=== PATIENT | female | born 1960 | race Caucasian/White ===

== ENCOUNTER 2020-06-20 20:28 | Emergency (ER) | payer MEDICARE ==
[~2020-06-20] VITALS: Ht 157.5 cm; Wt 83.9 kg
[2020-06-20] MEDS ORDERED: HYDROCODONE/APAP 5MG-325MG TAB ONE (21:49)
[2020-06-20] MEDS ORDERED: HYDROCODONE/APAP 5MG-325MG TAB PO ONE (22:00)
[2020-06-20] MEDS ORDERED: ULTRAM50 MG PO (23:06)
== END 2020-06-20 23:30 | disposition home or self-care (01) ==
LOC: ER 20:35
DX: S92.021A Displaced fracture of anterior process of right calcaneus, initial encounter for closed fracture (principal); X50.1XXA Overexertion from prolonged static or awkward postures, initial encounter; Y93.01 Activity, walking, marching and hiking; Y92.89 Other specified places as the place of occurrence of the external cause
CPT/HCPCS: 99283

== ENCOUNTER 2021-06-16 16:13 | Emergency (ER) | payer MEDICARE, OTHER ==
[~2021-06-16] VITALS: Ht 157.5 cm; Wt 83.9 kg
[~2021-06-16 16:13] MED LIST: ULTRAM50 MG PO
[2021-06-16] MEDS ORDERED: HYDROCODONE/APAP 5MG-325MG TAB PO ONE (16:45)
[2021-06-16] MEDS ORDERED: HYDROXYZINE HCL 25 MG TAB PO PRN (17:15)
== END 2021-06-16 18:00 | disposition home or self-care (01) ==
LOC: ER 16:26
DX: M54.50 Low back pain, unspecified (principal); G47.411 Narcolepsy with cataplexy; I10 Essential (primary) hypertension
CPT/HCPCS: 72100; 93005; 99284; J3410

== ENCOUNTER 2022-01-01 15:04 | Observation (INO) | payer MEDICARE ==
[~2022-01-01] VITALS: Ht 160 cm; Wt 80.7 kg
[2022-01-01] MEDS ORDERED: SODIUM CHLORIDE 0.9% 1000ML 1,000 ML IV STA (15:23)
[2022-01-01] MEDS ORDERED: KETOROLAC TROMETHAMINE 30 MG/ML VIAL IV STA (15:23)
[2022-01-01 15:51] LABS: BASOPHILS # (AUTO) 0.1 (0.0-0.1); BASOPHILS % 0.7 % (0.0-1.0); EOSINOPHILS # (AUTO) 0.3 (0.0-0.4); EOSINOPHILS % 4.3 % (0.0-6.0); HEMATOCRIT 44.3 % (34.2-44.1); HEMOGLOBIN 14.5 g/dL (12.0-16.0); LYMPHOCYTES # (AUTO) 3.1 (1.0-3.2); LYMPHOCYTES % 43.1 % (18.0-39.1); MEAN CORPUSCULAR HEMOGLOBIN 27.9 pg (28-32); MEAN CORPUSCULAR HGB CONC 32.7 g/dL (31-35); MEAN CORPUSCULAR VOLUME 85.2 fL (81-99); MONOCYTES # (AUTO) 0.5 (0.2-0.8); MONOCYTES % 7.4 % (4.4-11.3); NEUTROPHILS # (AUTO) 3.2 (2.1-6.9); NEUTROPHILS % 44.4 % (38.7-80.0); PLATELET COUNT 255 x10e3/uL (140-360); RED CELL DISTRIBUTION WIDTH 14.2 % (11.7-14.4)
[2022-01-01 16:07] LABS: ALANINE AMINOTRANSFERASE 17 IU/L (0-55); ALBUMIN 3.7 g/dL (3.5-5.0); ALBUMIN/GLOBULIN RATIO 1.1 (0.8-2.0); ALKALINE PHOSPHATASE 84 IU/L (40-150); ANION GAP 17.6 mmol/L (8-16); BLOOD UREA NITROGEN 8 mg/dL (7-26); BUN/CREATININE RATIO 10 (6-25); CALCIUM 9.7 mg/dL (8.4-10.2); CARBON DIOXIDE 19 mmol/L (22-29); CHLORIDE 108 mmol/L (98-107); CREATINE KINASE 99 IU/L (29-168); CREATININE, SERUM 0.79 mg/dL (0.57-1.11); GLUCOSE 159 mg/dL (74-118); LIPASE 19 U/L (8-78); POTASSIUM 3.6 mmol/L (3.5-5.1); SODIUM 141 mmol/L (136-145)
[2022-01-01 16:16] LABS: CLARITY,URINE CLEAR (CLEAR); COLOR,URINE YELLOW (YELLOW); KETONES,URINE 1+ (NEGATIVE); LEUKOCYTE ESTERASE ,URINE NEGATIVE (NEGATIVE); NITRITE,URINE NEGATIVE (NEGATIVE); PROTEIN,URINE DIPSTICK NEGATIVE (NEGATIVE); URINE UROBILINOGEN 0.2 mg/dL (0.2 - 1)
[2022-01-01 16:20] LABS: BACTERIA,URINE FEW /HPF; EPITHELIAL CELLS,URINE FEW /LPF; RBC,URINE 0-5 /HPF (0-5); WBC,URINE (MAN) 0-5 /HPF (0-5)
[2022-01-01] MEDS: Morphine 4mg INJECTION 4 MG/ML INJ IV PRN (17:40)
[2022-01-01] MEDS: ONDANSETRON HCL INJ 2MG/ML 2ML 2 MG/ML VIAL IV PRN (17:40)
[2022-01-01] MEDS: SODIUM CHLORIDE 0.9% 1000ML 1,000 ML IV SCH ×2 (17:40→22:00)
[2022-01-01 18:29] LABS: CREATINE KINASE 84 IU/L (29-168)
[2022-01-01 21:55] VITALS: BP 113/97
[2022-01-01 22:00] VITALS: BP 113/97
[2022-01-01] MEDS ORDERED: WAKIX17.8 MG PO (22:38)
[2022-01-01] MEDS ORDERED: HYDROCODON-ACE1 EAC9 (22:38)
[2022-01-01] MEDS ORDERED: SUMATRIPTAN SUC25 MG PO (22:38)
[2022-01-01] MEDS ORDERED: HYDROXYZINE HCL25 MG PO (22:38)
[2022-01-01] MEDS ORDERED: ADAPALENE45 G2 (22:38)
[2022-01-01] MEDS ORDERED: FOLIC ACID0.4 MG PO (22:38)
[2022-01-01] MEDS ORDERED: UBRELVY100 MG PO (22:38)
[2022-01-01] MEDS ORDERED: [UNRECOGNIZED DRUG - OTHER] INJ (22:38)
[2022-01-01] MEDS ORDERED: NUVIGIL150 MG PO (22:38)
[2022-01-02] VITALS (8 sets, daily range): BP systolic 111–140; BP diastolic 41–71
[2022-01-02 02:18] LABS: CREATINE KINASE 83 IU/L (29-168)
[2022-01-02 05:33] LABS: BASOPHILS % 0.5 % (0.0-1.0); EOSINOPHILS # (AUTO) 0.2 (0.0-0.4); EOSINOPHILS % 3.7 % (0.0-6.0); HEMATOCRIT 38.1 % (34.2-44.1); LYMPHOCYTES # (AUTO) 2.5 (1.0-3.2); LYMPHOCYTES % 37.8 % (18.0-39.1); MEAN CORPUSCULAR HEMOGLOBIN 27.9 pg (28-32); MEAN CORPUSCULAR HGB CONC 31.5 g/dL (31-35); MEAN CORPUSCULAR VOLUME 88.6 fL (81-99); MONOCYTES # (AUTO) 0.5 (0.2-0.8); MONOCYTES % 7.2 % (4.4-11.3); NEUTROPHILS # (AUTO) 3.3 (2.1-6.9); NEUTROPHILS % 50.8 % (38.7-80.0); PLATELET COUNT 184 x10e3/uL (140-360); RED CELL DISTRIBUTION WIDTH 14.6 % (11.7-14.4)
[2022-01-02 05:51] LABS: ANION GAP 11.2 mmol/L (8-16); CALCIUM 8.2 mg/dL (8.4-10.2); CREATININE, SERUM 0.68 mg/dL (0.57-1.11); PHOSPHORUS 3.3 MG/DL (2.3-4.7); POTASSIUM 4.2 mmol/L (3.5-5.1)
[2022-01-02] MEDS: SODIUM CHLORIDE 0.9% 1000ML 1,000 ML IV SCH ×2 (06:40→16:44)
[2022-01-02] MEDS: ONDANSETRON HCL INJ 2MG/ML 2ML 2 MG/ML VIAL IV PRN (07:54)
[2022-01-02] MEDS: Morphine 4mg INJECTION 4 MG/ML INJ IV PRN (07:59)
[2022-01-02] MEDS ORDERED: MAGNESIUM HYDROXIDE 30 ML UDC PO PRN (09:30)
[2022-01-02] MEDS ORDERED: ARMODAFINIL 150 MG TAB PO SCH (09:30)
[2022-01-02] MEDS ORDERED: BISACODYL 10 MG SUPP PR PRN (09:30)
[2022-01-02] MEDS ORDERED: NUVIGIL200 MG PO (09:53)
[2022-01-02] MEDS ORDERED: BISACODYL 10 MG SUPP PR ONE (10:00)
[2022-01-02] MEDS ORDERED: MAGNESIUM HYDROXIDE 30 ML UDC PO ONE (10:00)
[2022-01-02] MEDS: HYDROXYZINE HCL 25 MG TAB PO SCH ×3 (10:25→21:05)
[2022-01-02] MEDS ORDERED: CITRATE OF MAGNESIA 300ML BOTTLE PO ONE (11:00)
[2022-01-02 11:14] LABS: CREATINE KINASE MB 2.3 ng/mL (0-5.0)
[2022-01-02] MEDS: SENNA-S TABLET PO SCH (16:43)
[2022-01-02] MEDS ORDERED: BISACODYL 5 MG TAB EC PO ONE ×2 (23:16→23:30)
[2022-01-03] MEDS ORDERED: BISACODYL 5 MG TAB EC PO SCH
[2022-01-03 00:30] VITALS: BP 127/71
[2022-01-03] MEDS: ONDANSETRON HCL INJ 2MG/ML 2ML 2 MG/ML VIAL IV PRN (01:58)
[2022-01-03] MEDS: Morphine 4mg INJECTION 4 MG/ML INJ IV PRN (01:59)
[2022-01-03] MEDS ORDERED: CITRATE OF MAGNESIA 300ML BOTTLE PO ONE ×2 (05:00→07:00)
[2022-01-03] MEDS: SODIUM CHLORIDE 0.9% 1000ML 1,000 ML IV SCH (05:30)
[2022-01-03 05:33] LABS: BASOPHILS # (AUTO) 0.1 (0.0-0.1); BASOPHILS % 0.8 % (0.0-1.0); EOSINOPHILS # (AUTO) 0.5 (0.0-0.4); EOSINOPHILS % 6.3 % (0.0-6.0); HEMATOCRIT 41.6 % (34.2-44.1); HEMOGLOBIN 13.2 g/dL (12.0-16.0); LYMPHOCYTES # (AUTO) 3.2 (1.0-3.2); LYMPHOCYTES % 45.4 % (18.0-39.1); MEAN CORPUSCULAR HEMOGLOBIN 27.8 pg (28-32); MEAN CORPUSCULAR HGB CONC 31.7 g/dL (31-35); MEAN CORPUSCULAR VOLUME 87.8 fL (81-99); MONOCYTES # (AUTO) 0.6 (0.2-0.8); NEUTROPHILS # (AUTO) 2.8 (2.1-6.9); NEUTROPHILS % 39.2 % (38.7-80.0); PLATELET COUNT 213 x10e3/uL (140-360); RED BLOOD COUNT 4.74 x10e6/uL (3.6-5.1); RED CELL DISTRIBUTION WIDTH 14.5 % (11.7-14.4)
[2022-01-03 05:53] LABS: ANION GAP 15.7 mmol/L (8-16); BLOOD UREA NITROGEN < 5 mg/dL (7-26); CALCIUM 9.1 mg/dL (8.4-10.2); CARBON DIOXIDE 27 mmol/L (22-29); CHLORIDE 108 mmol/L (98-107); GLUCOSE 77 mg/dL (74-118); POTASSIUM 4.7 mmol/L (3.5-5.1); SODIUM 146 mmol/L (136-145)
[2022-01-03 06:06] LABS: BUN/CREATININE RATIO 7 (6-25)
[2022-01-03 08:44] VITALS: BP 165/78
[2022-01-03] MEDS: SENNA-S TABLET PO SCH ×2 (09:00→17:00)
[2022-01-03] MEDS: HYDROXYZINE HCL 25 MG TAB PO SCH ×2 (09:00→15:00)
[2022-01-03 10:00] VITALS: BP 165/78
[2022-01-03 11:52] VITALS: BP 127/71
[2022-01-03] MEDS ORDERED: LIDOCAINE HCL 2% LOCAL INJ 5 ML SDV VIAL INJ ONE (12:55)
[2022-01-03] MEDS ORDERED: PROPOFOL IV EMULSION 10 MG/ML 20 ML VIAL ONE (12:55)
[2022-01-03 16:07] VITALS: BP 131/60
== END 2022-01-03 17:55 | disposition home or self-care (01) ==
LOC: ER 15:25 → ERHOLD 17:09 → INTOOBSV 17:09 → MED/SURG 21:38
PROVIDERS: ADMIT Internal Medicine; ATTEND Internal Medicine
DX: K56.600 Partial intestinal obstruction, unspecified as to cause (principal); K62.1 Rectal polyp; G47.419 Narcolepsy without cataplexy; F17.210 Nicotine dependence, cigarettes, uncomplicated; K64.8 Other hemorrhoids; I10 Essential (primary) hypertension; R00.1 Bradycardia, unspecified; Z98.84 Bariatric surgery status; Z20.822 Contact with and (suspected) exposure to COVID-19
CPT/HCPCS: 36415 ×3; 45385; 71045 ×2; 74019; 74177; 80048 ×2; 80053; 81001; 82550 ×2; 82553 ×2; 82948; 83690; 83735; 84100; 84484 ×2; 85025 ×3; 88305; 93005 ×2; 93306; 99284; G0378 ×3; J1885; J2001; J2270 ×3; J2405 ×3; J2704; J3410; J7030 ×2; U0002; 45378